=== PATIENT | male | born 1960 | race Caucasian/White ===

== ENCOUNTER 2019-03-24 06:06 | Emergency (ER) | payer SELFPAY ==
[~2019-03-24] VITALS: Ht 170.2 cm; Wt 90.4 kg
[~2019-03-24 06:06] MED LIST: IBUP-1542 PO
[2019-03-24 06:08] VITALS: Ht 170.2 cm; Wt 90.4 kg
[2019-03-24] MEDS ORDERED: IBUPROFEN 800 MG TAB PO ONE (07:00)
[2019-03-24] MEDS ORDERED: NAPR-985 PO (07:15)
[2019-03-24] MEDS ORDERED: HYDR-4011 PO (07:15)
[2019-03-24 07:28] VITALS: BP 126/85; PULSE 76; RESP 19
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
== END 2019-03-24 07:28 | disposition home or self-care (01) ==
LOC: FTE 06:06
DX: S90.32XA Contusion of left foot, initial encounter (principal); I10 Essential (primary) hypertension; V28.9XXA Unspecified motorcycle rider injured in noncollision transport accident in traffic accident, initial encounter
CPT/HCPCS: 73610; 73630; 99283; L3260